=== PATIENT | male | born 1935 | race Caucasian/White ===

== ENCOUNTER 2019-05-14 14:02 | Inpatient (IN) | payer MEDICARE, OTHER ==
--- NOTE | 2019-05-14 15:40 | PDOC.FPRHP ---
- History of Present Illness Chief Complaint: Lower GI Bleed, Dissecting AAA History of Present Illness: Pt is an 83 yo male who presents for dark stool beginning yesterday. He became unable to hold his BM's due to frequency, urgency prompting him to be seen. He does have history of diverticulitis a few years ago without surgical intervention. He was seen in [place] who sent him to [facility] for bleeding as well his known AAA appearing to be dissecting. In [place] Hgb 14.7. Pt denies lightheadedness, orthostatic hypotension, tachycardia, abdominal pain, fever, chills. He is mildly nauseated. He recently d/c his anti-coag for a-fib but was taking ASA. In regards to his AAA, he is seen by Dr. Burns. Dr. Grier was consulted from the emergency department. He will stop by and see the pt but is not concerned for rupture. Pt was recently treated for bladder cancer with resection earlier this week at [facility]. He is seen by Dr. Rogers. Pt tolerated procedure well and was discharged home on Saturday. Pt is not currently taking radiation, chemotherapy. ED Course: In the ED was given 1 L NS. - Allergies/Adverse Reactions Allergies Allergy/AdvReac Type Severity Reaction Status Date / Time No Known Drug Allergies Allergy Verified 01/29/13 03:31 - History PMHx: Bladder cancer, prostate cancer in 2002 with radiation treatment, HTN, a- fib, HLD, CAD s/p 3 stents in 2006 PSHx: Bladder surgery FHx: non-contributory Social: quit pipe smoking 20 year ago, 1 alcoholic beverage daily, denies drugs , lives in [place] - Vital signs BP: 141/86 HR: 91 RR: 18 Tmax: 98.0 Pox: 97% on RA Wt: 81 kg - Physical Exam Constitutional: NAD, awake, alert and oriented HEENT: PERRLA, EOMI Neck: FROM, no JVD Heart: RRR, normal S1/S2, no edema Lungs: CTAB, no respiratory distress, good air movement, no wheezing Abdomen: soft, non-tender, bowel sounds present, no hernias Musculoskeletal: normal structure, normal tone Neurological: no focal deficit, CN II-XII intact Skin: no rash/lesions, capillary refill <2 seconds Heme/Lymphatic: no purpura, no petechia Psychiatric: normal mood and affect, good judgment and insight FMR H&P: Results - Labs Result Diagrams: 05/15/19 04:12 05/15/19 04:12 - Radiology Interpretation CT scan - pelvis Status: report reviewed by me Additional comment: Diverticulosis FMR H&P: A/P - Problem List (1) GI bleed Current Visit: Yes Status: Acute Code(s): K92.2 - GASTROINTESTINAL HEMORRHAGE, UNSPECIFIED (2) Bladder cancer Current Visit: Yes Status: Acute (3) HTN (hypertension) Current Visit: Yes Status: Acute Code(s): I10 - ESSENTIAL (PRIMARY) HYPERTENSION (4) HLD (hyperlipidemia) Current Visit: Yes Status: Acute Code(s): E78.5 - HYPERLIPIDEMIA, UNSPECIFIED (5) Hx of prostatic malignancy Current Visit: Yes Status: Acute Code(s): Z85.46 - PERSONAL HISTORY OF MALIGNANT NEOPLASM OF PROSTATE (6) CAD (coronary artery disease) Current Visit: Yes Status: Acute Code(s): I25.10 - ATHSCL HEART DISEASE OF [place] CORONARY ARTERY W/O ANG PCTRS (7) A-fib Current Visit: Yes Status: Acute Code(s): I48.91 - UNSPECIFIED ATRIAL FIBRILLATION (8) Diverticulosis Current Visit: Yes Status: Acute Code(s): K57.90 - DVRTCLOS OF INTEST, PART UNSP, W/O PERF OR ABSCESS W/O BLEED - Plan Pt is an 83 yo male here for: # GI Bleed - Dark Hemodynamically stable, Hgb 14.7. - consult GI, Dr. Isaacs - upper GI endoscopy tomorrow - NPO midnight - repeat H/H 1900 - hold asa - protonix drip started - fobt positive # AAA No abdominal pain - consult CV, Dr. Grier - Disucssed cases with Dr. Grier. He is not concerned for acute rupture but will see pt while in hospital. Will likely continue work up in outpt setting. # HTN - continue home meds # A-fib, rate controlled - hold asa - not on anti-coag therapy # HLD - continue home meds # Bladder Cancer - followed by Dr. Rogers. He is doing well s/p surgery Saturday. # Prostate Cancer - s/p radiation in 2002 # CAD - stable # Elevated PTINR - Hep panel pending Fluids: SL Diet: NPO midnight VTE: none Code: DNR Dispo: admit to inpt tele, endoscopy tomorrow FMR H&P: Upper Level - Plan Date/Time: 05/14/19 4700 IGonzález DO, have evaluated this patient and agree with findings/plan as outlined by architecture intern resident. Pertinent changes/additions are listed here. HPI 83 year old male presents as transfer from [place] ED for tarry stools He reports two days ago he began having dark stools with urgency. He denies any new abdominal pain, hematemesis, NSAID or AC use. Has been on warfarin in the past but DCd, has been on asa for the past two weeks. Additionally CT abd in outside ED reveal focal dissection of a known 4.6cm AAA. Dr. Grier was contacted from there and agreed to eval pt for possible surgical intervention at [facility]. Pt has a known hx of bladder cancer for which he is being seen at [facility]. He denies back pain, LE pain/redness/temperature changes. PE General: NAD HEENT: NCAT Chest: even inspiratory and expiratory effort, no retractions Abdomen: non distended, minimal midline pulsation, NTTP, bowel sounds present MSK: no weakness, or loss of ROM noted Extremities: non-edematous, pulses present Neuro: grossly intact, no focal deficits See architecture intern portion for full ROS, PE, labs and vitals. A/P Focal dissection of AAA - seen on CT scan at outside ED, records present - CV surg consulted, recommend tele monitoring, appreciate recs - monitor blood pressure GI bleed - FOBT +, melanotic stools with hx of diverticulosis, Hb/Hct wnl - recently began asa - GI consulted appreciate recs - protonix gtt, hep panel pending Dispo: admit to tele for monitoring and further work up of GI bleed Addendum - Attending - Attending Attestation Date/Time: 05/15/19 6326 I personally evaluated the patient and discussed the management with Dr. Bull /Anatoly I agree with the History, Examination, Assessment and Plan documented above with any addition or exceptions noted below. see my event note for details.
[2019-05-14] MEDS ORDERED: Pantoprazole 40 MG VIAL ONE (15:43)
[2019-05-14] MEDS ORDERED: Pantoprazole 80 MG in Sodium Chloride 0.9% 100 ML IVPB SCH (16:45)
--- NOTE | 2019-05-14 17:13 | PDOC.EVN ---
Addendum - Attending - Attending Attestation Date/Time: 05/14/19 7797 I personally evaluated the patient and discussed the management with Dr. Bull /Anatoly I agree with the History, Examination, Assessment and Plan documented above with any addition or exceptions noted below. 83 yo WM PMH CAD s/p stent x3, HTN, diverticulosis, bladder cancer, and known AAA. presents with 2 day hx melenanotic stools and increased frequency of stools. C/O generalized malaise. Exam remarkable for mild suprapubic tenderness. Labs from outside ER reviewed and unremarkable. CT abd/pelv from outside ER showed AAA with small dissection. Dr. Grier from CV surg consulted prior to transfer and stated was stable for admission at [facility]. Patients VSS. Admit for suspected upper GI bleed. continue protonix GTT. GI consulted today. Will likely undergo EGD/colonoscopy but will defer final decision to GI. Will screen for hep B and C. Inpatient, medical, >2 midnights.
[2019-05-14] MEDS ORDERED: GoLYTELY 4,000 ml Bottle PO SCH (18:30)
[2019-05-14 19:02] LABS: Hemoglobin 13.7 g/dL (14.0-18.0)
--- NOTE | 2019-05-14 21:35 | CON ---
DATE OF CONSULTATION: HISTORY OF PRESENT ILLNESS: This is a pleasant 83-year-old gentleman who recently had transurethral resection of bladder tumors in [place] by the local urologist. This was complicated by the need for several days of oral codeine for pain and this then resulted in rather severe constipation. Ultimately, he was given Mag citrate and has been having loose stools since that time that had been black. He was seen in the emergency room in [place] where his hemoglobin was 14. A CT scan of his abdomen was done showing a 4.5 cm infrarenal abdominal aortic aneurysm without leakage. I was contacted in regard to his aneurysm and suggested this could be followed as an outpatient. However, he should be admitted through the [facility] for a GI evaluation. The patient was subsequently transferred to [facility] where he was seen. PAST MEDICAL HISTORY: Significant for hypertension, dyslipidemia, history of bleeding diverticula. He has had a diagnosis of prostate cancer treated with radiation about 17 years ago. He has had bladder cancer treated by transurethral resections on at least 2-3 occasions. He has a history of atrial fibrillation, although he is on no anticoagulation for this. He has a history of cardiac stents x3, treated only with 81 mg of aspirin a day. HOME MEDICATIONS: Include: 1. Diltiazem. 2. Lisinopril. 3. Simvastatin. 4. Dyazide. 5. Aspirin 81 daily. PHYSICAL EXAMINATION: GENERAL: On examination, he is alert cooperative gentleman, appearing his stated age, 5 foot 8 inches, 80 kg. NECK: No carotid bruits. LUNGS: Clear to auscultation. CARDIAC: Regular rate and rhythm. He has no evidence of AFib and he has no murmurs. ABDOMEN: Obese, soft, nontender and I do not appreciate any aneurysm on exam. EXTREMITIES: He has palpable femoral, popliteal, and pedal pulses. He has no peripheral edema. The patient continues to have dark colored stools here with stable vital signs. He has no repeat labs since his hemoglobin of 14 in the emergency room. The patient is chronically followed with q.6 months ultrasounds for his abdominal aortic aneurysm by Dr. Brown at the [facility] and the patient wishes to continue followup here. As such, unless something changes during his hospital course, I have not recommended anything further in regard to his aneurysm. Job ID: [id number]
[2019-05-14] MEDS ORDERED: Acetaminophen 325 MG TAB PO PRN (21:43)
[2019-05-14 22:18] VITALS: BMI 24.2
--- NOTE | 2019-05-15 00:22 | CON ---
DATE OF CONSULTATION: 05/14/2019 REQUESTING PHYSICIAN: Patrick Bull DO REASON FOR CONSULTATION: Melena. HISTORY OF PRESENT ILLNESS: Bernardino Sparks is a very pleasant 83-year-old gentleman, who was transferred from [place] with concern for GI bleeding. He has a prior history significant for diverticular bleeding episodes in 2017, with colonoscopy performed by Dr. Guerra. At that time, he has no other significant prior gastrointestinal history. He has an abdominal aortic aneurysm, which has been stable for several years, followed by Dr. Brown. He recently underwent a bladder procedure, reports he had constipation for about a week, then was taking laxatives for several days. Now, for the past 24 hours, he has started passing jet black loose bowel movements sometimes, uncontrollably. There is no red blood. There is no associated abdominal pain. He does have some chronic nausea, but no vomiting. He presented to the emergency department and there was concern that this represented melena. Hemoglobin was satisfactory at 14.7. He is hemodynamically stable. He is being admitted to the hospital starting on a Protonix drip. REVIEW OF SYSTEMS: Full review of systems including constitutional, head, eyes, ears, nose, throat, GI, , cardiovascular, respiratory, musculoskeletal, neurologic systems is negative except as noted in the HPI. ALLERGIES: NO KNOWN DRUG ALLERGIES. OUTPATIENT MEDICATIONS: Per report. PAST MEDICAL HISTORY: Bladder cancer, prostate cancer in 2002 with radiation therapy, hypertension, atrial fibrillation, hyperlipidemia, coronary artery disease status post stent placement x3 in 2006. SOCIAL HISTORY: Quit pipe smoking 20 years ago. One alcoholic beverage daily. No drug use. He lives in [place]. FAMILY HISTORY: Noncontributory. PHYSICAL EXAMINATION: VITAL SIGNS: Pulse 82, blood pressure 121/97, 93% oxygen saturation on room air, and temperature is 98.0. GENERAL: An 83-year-old man, lying in bed comfortably, in no distress. SKIN: No pallor, no jaundice. No rashes were palpable. EYES: No scleral icterus. Extraocular movements intact. ENT: Mucous membranes moist. No oral lesions. LYMPH: No submandibular or supraclavicular lymphadenopathy. THYROID: Nontender to palpation. HEART: Regular rate and rhythm. LUNGS: Clear to auscultation bilaterally. ABDOMEN: Bowel sounds present. Soft, nontender to palpation. EXTREMITIES: No peripheral edema. VESSELS: Radial pulses 2+ bilaterally. NEURO: Cranial nerves 2 through 12 intact bilaterally. No focal deficits. LABORATORY STUDIES: Hemoglobin is 14.7. Other labs currently pending. IMAGING STUDIES: CT of the abdomen was performed at the outside facility. It shows a 4.6 cm abdominal aortic aneurysm. It was read as focal dissection, but he has been evaluated by Dr. Grier, who feels that this is a stable finding. ASSESSMENT AND PLAN: Melena. The patient is presenting with jet black stools just over the past day, which is concerning for melena. On the other hand, he is hemodynamically stable and hemoglobin is 14.7, which is a good sign. He has never undergone EGD. This does not seem to be consistent with lower gastrointestinal bleeding such as recurrent diverticular bleeding as he has had in the past. Agree with the Protonix drip. Please have the patient n.p.o. after midnight, we are going to plan for diagnostic EGD tomorrow. Thank you for the consultation. Please call anytime with questions or concerns. Job ID: [id number]
[2019-05-15 04:32] LABS: #Basophils 0.1 thou/uL (0.0-0.2); #Eosinphils 0.1 thou/uL (0.0-0.7); #Lymphocytes 1.7 thou/uL (1.20-3.40); #Monocytes 0.8 thou/uL (0.11-0.59); #Neutrophils 6.1 thou/uL (1.40-6.50); %Basophils 0.7 % (0.0-1.0); %Lymphocytes 18.9 % (21.0-51.0); %Monocytes 9.3 % (0.0-10.0); %Neutrophils 70.1 % (42.0-75.0); Hemoglobin 14.1 g/dL (14.0-18.0); Mean Corpuscular HGB CONC 32.8 g/dL (32.0-36.0); Mean Corpuscular Hemoglobin 33.7 pg (27.0-31.0); Mean Platelet Volume 8.7 fL (7.4-10.4); Platelet Count 258 thou/uL (130-400); RBC Distribution Width 10.9 % (11.5-14.5); Red Blood Cell (RBC) Count 4.18 mill/uL (4.70-6.10); White Blood Cell (WBC) Count 8.8 thou/uL (4.8-10.8)
[2019-05-15 04:57] LABS: Anion Gap 17 mmol/L (10-20); BUN (Urea Nitrogen) 25 mg/dL (8.4-25.7); Calc. Creatinine Clearance 46 mL/min (70-130); Calcium 8.1 mg/dL (7.8-10.44); Carbon Dioxide 18 mmol/L (23-31); Chloride 110 mmol/L (98-107); Estimated GFR-MDRD 47; Glucose 92 mg/dL (83-110); Sodium 141 mmol/L (136-145)
[2019-05-15 05:22] LABS: HBCM Index 0.05 S/CO (0-0.79); HBSAB Concentration 1.27 mIU/mL; HBSAg Index 0.23 S/CO (0-0.99); Hep B Surf AB Non-Reactive (NonReactive); Hep B Surf Ag Non-Reactive S/CO (NonReactive); Hep C IgG Ab Non-Reactive (NonReactive); Hep C Index 0.14 S/CO (0-0.79); Hepatitis B Core IgM Abs Non-Reactive (NonReactive)
--- NOTE | 2019-05-15 06:32 | PDOC.FM ---
- Subjective Subjective: Pt is having pain from frequent BM's. He states it kept him up through the night. He continued with dark BM's. He will have an EGD performed this morning. Otherwise pt is hungry as he has been NPO multiple times this week. He denies abdominal pain. - Objective Vital Signs & Weight: Vital Signs (12 hours) Temp Pulse Resp BP Pulse Ox 05/15/19 04:20 97.4 F L 71 20 142/67 H 95 05/14/19 22:05 96 Weight Weight 81.012 kg I&O: 05/13/19 05/14/19 05/15/19 06:59 06:59 06:59 Intake Total 1900 Balance 1900 Result Diagrams: 05/15/19 04:12 05/15/19 04:12 EKG Reviewed by me: Yes (NSR on tele) Phys Exam - Physical Examination Constitutional: NAD Dry MM's, PERRLA Respiratory: no wheezing, clear to auscultation bilateral Cardiovascular: RRR, no significant murmur Gastrointestinal: soft, non-tender, no distention, positive bowel sounds Musculoskeletal: no edema, pulses present Psychiatric: normal affect, A&O x 3 Dx/Plan (1) GI bleed Code(s): K92.2 - GASTROINTESTINAL HEMORRHAGE, UNSPECIFIED Status: Acute (2) Bladder cancer Status: Acute (3) HTN (hypertension) Code(s): I10 - ESSENTIAL (PRIMARY) HYPERTENSION Status: Acute (4) HLD (hyperlipidemia) Code(s): E78.5 - HYPERLIPIDEMIA, UNSPECIFIED Status: Acute (5) Hx of prostatic malignancy Code(s): Z85.46 - PERSONAL HISTORY OF MALIGNANT NEOPLASM OF PROSTATE Status: Acute (6) CAD (coronary artery disease) Code(s): I25.10 - ATHSCL HEART DISEASE OF [place] CORONARY ARTERY W/O ANG PCTRS Status: Acute (7) A-fib Code(s): I48.91 - UNSPECIFIED ATRIAL FIBRILLATION Status: Acute (8) Diverticulosis Code(s): K57.90 - DVRTCLOS OF INTEST, PART UNSP, W/O PERF OR ABSCESS W/O BLEED Status: Acute - Plan Plan: Pt is an 83 yo male here for: # GI Bleed - Dark Hemodynamically stable, Hgb 14.7. Repeat 13.7. AM Hgb 14.1 - consult GI, Dr. Isaacs - upper GI endoscopy this am - hold asa - protonix drip started - fobt positive - tramadol x 1 for pain 2/2 multiple BM, unable to give NSAID due to GI dysfunction # AAA No abdominal pain - consult CV, Dr. Grier - Discussed case with Dr. Grier. He is not concerned for acute rupture but will see pt while in hospital. Will likely continue work up in outpt setting. # CKD vs ADRIANNA - Creatinine 1.45, GFR 47 # HTN - continue home meds # A-fib, rate controlled - hold asa - not on anti-coag therapy - cont dilt - will talk with Dr. Farmer, Dr. Mirza about IV dilt as he is NPO. # HLD - continue home meds # Bladder Cancer - followed by Dr. Rogers. He is doing well s/p surgery Saturday. # Prostate Cancer - s/p radiation in 2002 # CAD - stable # Elevated PTINR - Hep panel neg Fluids: SL Diet: NPO midnight VTE: none Code: DNR Dispo: admit to inpt tele, endoscopy today Addendum - Attending - Attending Attestation Date/Time: 05/15/19 8626 I personally evaluated the patient and discussed the management with Dr. Bull I agree with the History, Examination, Assessment and Plan documented above with any addition or exceptions noted below. EGD today. dispo pending results. no events overnight.
[2019-05-15] MEDS ORDERED: Simvastatin 20 MG TAB PO SCH (09:00)
[2019-05-15] MEDS ORDERED: FLU VACC TS2019-20(65YR UP)/PF 180 MCG/0.5 ML SYRINGE IM ONE (09:00)
[2019-05-15] MEDS ORDERED: Triamterene/Hydrochlorothiazide 37.5 mg/25 mg Tablet PO SCH (09:00)
[2019-05-15] MEDS ORDERED: traMADol HCl 50 MG TAB PO SCH (09:00)
[2019-05-15] MEDS ORDERED: Lisinopril 20 MG TAB PO SCH (09:00)
[2019-05-15] MEDS ORDERED: Pantoprazole 80 MG, Admixture Fee 1 EACH in Sodium Chloride 0.9% 100 ML IVPB SCH (10:00)
[2019-05-15] MEDS ORDERED: PROPOFOL 200 MG/20 ML VIAL ONE (10:18)
[2019-05-15 16:04] VITALS: BP 147/70; TEMP 97.8
--- NOTE | 2019-05-15 17:50 | OP ---
DATE OF PROCEDURE: 05/15/2019 FOOD AND BEVERAGE CHECKER SURGEON: None. PROCEDURE PERFORMED: Esophagogastroduodenoscopy, diagnostic. INDICATION: Possible melena characterized by recent very dark stools. MEDICATIONS: See Anesthesia record. FINDINGS: After discussion of the risks, benefits, and alternatives of the procedure, informed consent was obtained and witnessed. Pre-endoscopic cardiopulmonary examination was satisfactory. Time-out was performed before sedation was achieved. Sedation was achieved with Anesthesia assistance in the endoscopy unit. A Pentax adult upper endoscope was placed into the oropharynx and passed through the cricopharyngeus under direct visualization. The esophageal mucosa appeared normal throughout with a normal-appearing Z-line. There were no esophageal varices. The endoscope was advanced into the stomach. Forward and retroflexed views of the entire gastric mucosa were obtained. The gastric mucosa appeared normal throughout. There was no evidence of any old blood or active bleeding. No bleeding lesions. There were no gastric varices on retroflexion. The endoscope was passed through the pylorus and into the first and second portions of the duodenum. In the second portion of the duodenum, there was a single small clean based erosion with no evidence of bleeding. The remainder of the duodenal mucosa appears normal. The upper endoscope was completely withdrawn and the patient allowed to recover. The patient tolerated the procedure well. There were no immediate postprocedure complications. IMPRESSION: 1. Single small duodenal erosion, clean based, nonbleeding. 2. Otherwise normal esophagogastroduodenoscopy. RECOMMENDATIONS: 1. Pantoprazole 40 mg daily for 1 month. 2. Advance diet. 3. Okay for discharge home from a GI perspective. GI will sign off. Please call back with any questions or concerns. Job ID: [id number]
== END 2019-05-15 18:32 | disposition home or self-care (01) | DRG 377 ==
LOC: ERS 14:02 → 2NO 16:05
PROVIDERS: ADMIT Family Medicine; ATTEND Family Medicine
PROC: 0DJ08ZZ Inspection of Upper Intestinal Tract, Via Natural or Artificial Opening Endoscopic (ICD-10-PCS; principal; 2019-05-15)
DX: K26.4 Chronic or unspecified duodenal ulcer with hemorrhage (principal); I71.02 Dissection of abdominal aorta; N17.9 Acute kidney failure, unspecified; K57.31 Diverticulosis of large intestine without perforation or abscess with bleeding; Z66 Do not resuscitate; I25.10 Atherosclerotic heart disease of native coronary artery without angina pectoris; E78.5 Hyperlipidemia, unspecified; I48.91 Unspecified atrial fibrillation; N18.9 Chronic kidney disease, unspecified; I12.9 Hypertensive chronic kidney disease with stage 1 through stage 4 chronic kidney disease, or unspecified chronic kidney disease; Z85.51 Personal history of malignant neoplasm of bladder; Z85.46 Personal history of malignant neoplasm of prostate; Z95.5 Presence of coronary angioplasty implant and graft; Z92.3 Personal history of irradiation; Z79.899 Other long term (current) drug therapy; Z79.82 Long term (current) use of aspirin; Z87.891 Personal history of nicotine dependence
CPT/HCPCS: 36415; 80048; 85014; 85018; 85025; 86705; 86706; 86803; 86850; 86900; 86901; 87340; 94760; 96365; 96366; 96376; C9113; J2704; J3490